=== PATIENT | female | born 1970 | race Caucasian/White ===

== ENCOUNTER 2022-03-15 13:19 | Emergency (ER) | payer OTHER ==
[~2022-03-15] VITALS: Ht 157.5 cm; Wt 77.2 kg
[~2022-03-15 13:19] MED LIST: HYDR25TA2 PO
[2022-03-15] MEDS ORDERED: IBUPROFEN 600 MG TABLET PO ONE (13:45)
[2022-03-15 15:15] VITALS: BP 140/87
== END 2022-03-15 15:31 | disposition home or self-care (01) ==
LOC: EMS 13:33
DX: G62.9 Polyneuropathy, unspecified (principal); I10 Essential (primary) hypertension; E03.9 Hypothyroidism, unspecified; Z90.721 Acquired absence of ovaries, unilateral; Z98.890 Other specified postprocedural states; Z88.0 Allergy status to penicillin
CPT/HCPCS: 70450; 99284

== ENCOUNTER 2023-04-29 20:30 | Emergency (ER) | payer BC, OTHER ==
[~2023-04-29] VITALS: Ht 162.6 cm; Wt 100.0 kg
[2023-04-29 20:34] VITALS: TEMP 98
[2023-04-29] MEDS ORDERED: ACETAMINOPHEN 500 MG TABLET PO ONE (22:15)
[2023-04-29] MEDS ORDERED: IBUP-1492 PO (23:58)
[2023-04-30] VITALS: BP 135/88; PULSE 65; RESP 18
== END 2023-04-30 00:09 | disposition home or self-care (01) ==
LOC: EMS 20:31
DX: M54.50 Low back pain, unspecified (principal); M54.2 Cervicalgia; R51.9 Headache, unspecified; I10 Essential (primary) hypertension; E03.9 Hypothyroidism, unspecified; Z90.722 Acquired absence of ovaries, bilateral; Z98.890 Other specified postprocedural states; Z88.0 Allergy status to penicillin
CPT/HCPCS: 70450; 72125; 72128; 72131; 73503; 99284